=== PATIENT | female | born 1940 | race American Indian/Alaskan Native ===

== ENCOUNTER 2018-07-03 15:03 | Emergency (ER) | payer MEDICARE ==
[2018-07-03] MEDS ORDERED: IBUPROFEN PO ONE ×2 (15:47→15:50)
--- NOTE | 2018-07-03 15:50 | Emergency Department Report ---
Chief Complaint: Pain General Stated Complaint: PAIN ALL OVER Time Seen by Provider: 07/03/18 15:45 - HPI History of Present Illness: This is a 77 y.o. female that presents with flu-like symptoms x 5 days. - ROS Review of Systems: diarrhea, fever, and myalgia. - Exam Vital Signs: Vital Signs 07/03/18 15:46 Temperature 101.1 F H Pulse Rate 93 H Respiratory 22 Rate Blood Pressure 150/66 O2 Sat by Pulse 97 Oximetry MSE screening note: Focused history and physical exam performed. Due to findings the following was ordered: Rapid flu Fast track for further evaluation. ED Disposition for MSE Condition: Stable
[2018-07-03] MEDS ORDERED: ZITHROMAX PO ONE (18:06)
[2018-07-03] MEDS ORDERED: ZOFRAN ODT PO ONE (18:07)
--- NOTE | 2018-07-03 18:24 | Emergency Department Report ---
Minor Respiratory - HPI Chief Complaint: Pain General Stated Complaint: PAIN ALL OVER Time Seen by Provider: 07/03/18 15:45 Duration: 3 Days Pain Location: Throat, Nose Severity: moderate Minor Respiratory: Yes Able to Tolerate Fluids, Yes Cough, Yes Fever, No Rhinorrhea, No Sore Throat, No Ear Pain, No Sick Contacts, No Hemoptysis, No Chest Pain, No Shortness of Breath Other History: This is 77-year-old female who presents to the complaining of cough and runny nose congestion for the past 2-3 days. Patient states cough is intermittent, mucous productive. She denies chest pain, shortness of breath, fever, nausea or vomiting. ED Review of Systems ROS: Stated complaint: PAIN ALL OVER Other details as noted in HPI Comment: All other systems reviewed and negative ED Past Medical Hx - Past Medical History Previous Medical History?: Yes Hx Diabetes: Yes - Surgical History Past Surgical History?: No - Social History Smoking Status: Never Smoker Substance Use Type: None - Medications Home Medications: Home Medications Medication Instructions Recorded Confirmed Last Taken Type Azithromycin [Zithromax TAB] 500 mg PO QDAY #6 tablet 07/03/18 Unknown Rx Benzonatate [Tessalon Perles] 100 mg PO Q8HR #20 capsule 07/03/18 Unknown Rx Ibuprofen [Motrin] 800 mg PO Q8HR #30 tablet 07/03/18 Unknown Rx Minor Respiratory Exam - Exam General: Vital signs noted. No distress. Alert and acting appropriately. HEENT: Yes Moist Mucous Membranes, No Pharyngeal Erythema, No Pharyngeal Exudates, No Rhinorrhea, No Conjuctival Injection, No Frontal Tenderness, No Maxillary Tenderness Ear: Neither TM Bulge, Neither TM Erythema, Neither EAC Pain, Neither EAC Discharge Neck: Yes Supple, No Adenopathy Lungs: Yes Good Air Exchange, Yes Cough, No Wheezes, No Ronchi, No Stridor, No Labored Respirations, No Retractions, No Use of Accessory Muscles, No Other Abnormal Lung Sounds Heart: Yes Regular, No Murmur Abdomen: Yes Normal Bowel Sounds, No Tenderness, No Peritoneal Signs Skin: No Rash, No Edema Neurologic: Alert and oriented, no deficits. Musculoskeletal: Unremarkable. ED Course Vital Signs 07/03/18 07/03/18 15:46 15:48 Temperature 101.1 F H Pulse Rate 93 H Respiratory 22 18 Rate Blood Pressure 150/66 O2 Sat by Pulse 97 Oximetry ED Medical Decision Making - Medical Decision Making 77-year-old female presents with upper respiratory infection Fever resolved no fever during the ED stay. Patient received Motrin and azithromycin ED. Will go away and treat patient prophylaxis the due to age and symptoms. And rapid flu negative Discussed symptomatic relief with [id number] medications. Discussed continue Tylenol and Motrin as needed for fever and pain. Discussed increase fluids and diet intake. Discussed rest much needed. Discussed daily vitamin C for immune booster. Discussed verbally states she understands and will comply the following instructions and follow-up Vital signs stable. Patient is in no acute distress Critical care attestation.: If time is entered above; I have spent that time in minutes in the direct care of this critically ill patient, excluding procedure time. ED Disposition Clinical Impression: Upper respiratory infection Disposition: - TO HOME OR SELFCARE Is pt being admited?: No Does the pt Need Aspirin: No Condition: Stable Instructions: Upper Respiratory Infection (ED), Bacterial Pneumonia (ED) Additional Instructions: Make sure to follow up with the primary care physician as discussed. Take all your medications as you've been prescribed. If you have any worsening symptoms or develop new symptoms please return to ED immediately. Prescriptions: Ibuprofen [Motrin] 800 mg PO Q8HR #30 tablet Benzonatate [Tessalon Perles] 100 mg PO Q8HR #20 capsule Azithromycin [Zithromax TAB] 500 mg PO QDAY #6 tablet Referrals: KARAN AGUILAR MD [Referring] - 3-5 Days HOLDEN MONTEMAYOR MD [Referring] - 3-5 Days Forms: Accompanied Note, Work/School Release Form(ED) Time of Disposition: 18:28
[2018-07-03 18:44] VITALS: BP 140/48
== END 2018-07-03 18:44 | disposition home or self-care (01) ==
LOC: ED 15:03
DX: J06.9 Acute upper respiratory infection, unspecified (principal); E11.9 Type 2 diabetes mellitus without complications
CPT/HCPCS: 87400; 99283; Q0162